=== PATIENT | female | born 1940 | race Caucasian/White ===

== ENCOUNTER 2016-03-30 18:53 | Observation (INO) | payer MEDICARE, BC ==
[2016-03-30] MEDS ORDERED: SODIUM CHLORIDE 3 % 500 ML IV SCH (19:15)
[2016-03-30] MEDS ORDERED: ALBUTEROL SULFATE/IPRATROPIUM 3 ML NEBU IH ONE ×2 (19:20→19:44)
--- NOTE | 2016-03-30 19:20 | ERNOTE ---
Respiratory HPI - Narrative Date of Service: 03/30/16 Narrative: Patient comes in with shortness of breath it's been going on since . An off-and-on got worse today while she was just doing her routine activities. She denies any abdominal pain or chest pain but she short of breath which are a little activities as stated. She is unable to sleep in a supine position she has to prop her supple pillows although she denies any leg swelling. Her calf pain patient's not had any fever. She's had a chest x-ray done today which did not show anything acute except for possible COPD She's also been seen and had a pulmonary function tests were still trying to get the results for. There is some question about her having asthma as well. Patient denies smoking. She has a cough dry hacking nature. She does state when paramedics arrived to her house her sats were only 76% - General Time Seen by Provider: 03/30/16 19:06 Source: patient Exam Limitations: no limitations - History of Present Illness Timing/Duration: just prior to arrival Severity: mild Associated Symptoms: Present: cough, lightheadedness, shortness of breath. Absent: chest pain/soreness, dizziness, earache, fever/chills, headache, muscle aches, nasal congestion, nasal drainage - Immun/Allergies/Home Medications Immunization: IMMUNIZATION HX Immunizations Up to Date Yes History of Influenza Vaccine No Hx Pneumococcal Vaccination Yes Allergies/Adverse Reactions: Allergies Allergy/AdvReac Type Severity Reaction Status Date / Time No Known Allergies Allergy Unverified 03/14/12 18:14 Home Medications: Home Medications Medication Instructions Recorded Last Taken Albuterol Sulfate [Proair Hfa] 8.5 gm IH PRN 03/14/12 Unknown Felodipine [Felodipine ER] 10 mg PO DAILY 03/14/12 Unknown Lisinopril 20 mg PO DAILY 03/14/12 Unknown Simvastatin 40 mg PO DAILY 03/14/12 Unknown Review of Systems - Review of Systems Constitutional: Absent: fever, weakness EENTM: Absent: blurred vision, ear discharge, mouth pain, mouth swelling Respiratory: Present: cough, orthopnea, short of breath, wheezing Cardiology: Absent: chest pain, edema, palpitations, syncope Gastrointestinal/Abdominal: Absent: abdominal pain, constipation Neurological: Absent: anxiety, depressed Hematologic/Lymphatic: Absent: anemia, blood clots All Other Systems: All systems neg except as marked - Patient's Past Medical History Patient History - Medical: No pertinent hx Patient History - Cardiac/Respiratory: Hypertension Patient History - Cancer: No Hx of Cancer Patient History - Surgical Procedures: No surgical history Patient History - Other: None - Family History mom Family History - Medical: , No pertinent hx Family History - Cardiac/Respiratory: No pertinent hx Family History - Cancer: Colon - Social History Living Situations: home Abuse History: No History of abuse Psych History: No pertinent hx Smoking Status: Never smoker Alcohol Use: none Drug Use: none - Immunizations Immunizations Up to Date: Yes Hx Pneumococcal Vaccination: Yes History of Influenza Vaccine: No Fever EXAM - Physical Exam General Appearance: Present: WD/WN, no apparent distress ENT Exam: Present: normal ENT inspection, pharynx normal, TMs normal Respiratory: Present: chest non-tender, decreased breath sounds, rhonchi, wheezing. Absent: accessory muscle use, rales, stridor Cardiovascular/Chest: Present: normal peripheral pulses, regular rate, rhythm, no chest tenderness, no edema, no gallop, no JVD, no murmur Gastrointestinal/Abdominal: Present: normal bowel sounds, no organomegaly, no pulsatile mass, non tender. Absent: distended, guarding Extremity: Present: normal range of motion, non-tender, normal inspection, no pedal edema, no calf tenderness Neurologic: Present: alert, normal mood/affect, oriented x 3 Skin Exam: Present: normal color, warm/dry, no cyanosis Lymphatic: Present: no adenopathy ED Progress - PROGRESS/REASSESSMENT Condition: Improved Progress Note-Subjective: 03/30/16 20:33 Is requiring oxygen her sats at rest lowest they've been a 88% - VITAL SIGNS Patient's Vital Signs:: I have reviewed the patient's vital signs. Vital Signs - Last Taken Temp 36.6 C 03/30/16 19:01 Pulse 134 H 03/30/16 19:01 Resp 22 H 03/30/16 19:01 BP 169/89 03/30/16 19:01 Pulse Ox 90 03/30/16 19:01 - RESULTS AND ORDERS Patient's Lab Results:: I have reviewed the patient's lab results. - EKG EKG #1 EKG: nonspecific ST T wave chg EKG Read: Reviewed by me EKG Comments: Past tachycardiac heart rate [address]-T wave changes. Departure - Departure Clinical Impression: COPD exacerbation, Hypoxemia Disposition: [facility] Condition: Stable Additional Instructions: To be admitted to the hospital, dimer may need a CT chest PE protocol, if the d-dimer is negative this is most likely COPD exacerbation.
[2016-03-30 19:28] LABS: Hematocrit 41.2 % (37.0-47.0); Hemoglobin 13.8 gm/dL (12.5-16.0); Mean Corpuscular Hemoglobin 29.8 pg (27-31); Mean Corpuscular Hgb Conc 33.5 g/dl (32-36); Mean Platelet Volume 9.3 fl (6.0-9.5); Neutrophil # 8.3 K/mm3 (1.3-6.0); Neutrophil % 69.7 % (42-75.0); Platelet Count 269 K/mm3 (150-450); Red Blood Count 4.63 M/mm3 (4.2-5.4); Red Cell Distribution Width 12.6 % (11.5-14.0)
[2016-03-30 19:39] LABS: Prothrombin Time (Patient) 10.5 Seconds (9.4-11.4)
[2016-03-30 19:42] LABS: INR 1.01 INR (0.90-1.10); Partial Thrombolplastin Time 22.6 Seconds (24-32)
[2016-03-30 19:46] LABS: Troponin I 0.017 ng/ml (0.00-0.10)
[2016-03-30 19:48] LABS: Albumin * 3.5 gm/dl (3.4-5.0); Anion Gap 11.3 mmol/L (6.8-13.8); BUN/Creatinine Ratio 11.3 (9.0-21.6); Bilirubin, Total 0.2 mg/dL (0.0-1.1); Ca. Corrected For Albumin 9.2 mg/dL (8.4-10.2); Calcium * 9.1 mg/dL (7.9-10.9); Potassium 4.3 mmol/L (3.4-4.6); Total Protein 7.6 gm/dL (6.2-8.2)
[2016-03-30] MEDS ORDERED: METHYLPREDNISOLONE SOD SUCC/PF 40 MG/ML VIAL IV ONE (20:21)
[2016-03-30] MEDS ORDERED: METHYLPREDNISOLONE SOD SUCC/PF 40 MG/ML VIAL ONE (20:52)
[2016-03-30] MEDS ORDERED: ALBUTEROL SULFATE 200 PUFF INHALER IH PRN (23:01)
[2016-03-30] MEDS ORDERED: guaiFENesin 100 MG/5 ML BTL PO PRN (23:08)
--- NOTE | 2016-03-30 23:39 | HP ---
Chief Complaint - Chief Complaint Date of Service: 03/30/16 Time of Service: 23:11 Chief Complaint: Shortness of breath, non productive cough History of Present Illness: 75 years old female adm to the hospital from ER with reports of shortness of breath and cough. PMH significant for Asthma, COPD, hypertension,, hyperlipidemia and hypothyroidism. pt stated approximately around the she noticed shortness of breath that have gotten progressively worst. Initially she was treated with oral antibiotics, steroids and inhalers. Despite treatment her condition continue to exacerbate with exertion, she was seen earlier today out-pt for CXR: No acute findings likey COPD. PFT: Moderate obstructive lung defect. While at home earlier today, pt stated she went out with her dogs and was unable to catch a breath.EMS was called and spo2 76% on room air, while in ER spo2 94% via nasal cannula. D- Dimer 0.79 CTA chest pending. EKG- Tachy no st-changes.pt denies chest discomfort, fever, chills, palpitation, diaphoresis and report intermittent clear sputum with cough. - Patient's Past Medical History Patient History - Medical: Hypothyroidism, Other - RLS Patient History - Cardiac/Respiratory: Asthma, COPD, Hypertension, Hyperlipidemia Patient History - Cancer: No Hx of Cancer Patient History - Surgical Procedures: Colonoscopy, Other - Right knee aspiration Patient History - Other: None - Family History mom Family History - Medical: , No pertinent hx Family History - Cardiac/Respiratory: No pertinent hx Family History - Cancer: Colon Father Family History - Cardiac/Respiratory: COPD - emphysema - Social History Living Situations: alone Abuse History: No History of abuse Psych History: No pertinent hx Smoking Status: Never smoker Have you smoked in the past 12 months: No Do you dip or chew tobacco: No Patient requests Smoking Cessation Consult: No Initiate information on Smoking Cessation: No Alcohol Use: none Drug Use: none - Immunizations Immunizations Up to Date: Yes Hx Pneumococcal Vaccination: Yes History of Influenza Vaccine: No Review Of Systems (GEN) - Review of Systems Generalized/Overall Review: Present: No Symptoms Reported EENTM: Present: No Symptoms Reported Respiratory: Present: Cough, Wheezing Cardiac: Present: No Symptoms Reported Abdominal: Present: No Symptoms Reported Genitourinary: Present: No Symptoms Reported Musculoskeletal: Present: No Symptoms Reported Neurological: Present: No Symptoms Reported Skin: Present: No Symptoms Reported Endocrine: Present: No Symptoms Reported Immunizations: IMMUNIZATION HX Immunizations Up to Date Yes History of Influenza Vaccine No Hx Pneumococcal Vaccination Yes Allergies/Adverse Reactions: Allergies Allergy/AdvReac Type Severity Reaction Status Date / Time No Known Allergies Allergy Unverified 03/14/12 18:14 Home Medications: HOME MEDICATIONS Albuterol Sulfate [Proair Hfa] 8.5 gm IH QID PRN 03/14/12 [Last Taken 03/29/16 20:00] Felodipine [Felodipine ER] 10 mg PO DAILY 03/14/12 [Last Taken 03/29/16 20:00] Lisinopril 20 mg PO DAILY 03/14/12 [Last Taken 03/29/16 20:00] Simvastatin 40 mg PO DAILY 03/14/12 [Last Taken 03/29/16 20:00] Albuterol Sulfate [Albuterol Sulfate 2.5 MG/0.5ML] 1 vial IH QID PRN 03/30/16 [ Last Taken Unknown] Exam - Exam Vital Signs: Vital Signs - Last Taken Temp 36.6 C 03/30/16 19:01 Pulse 112 H 03/30/16 19:58 Resp 22 H 03/30/16 19:58 BP 169/89 03/30/16 19:01 Pulse Ox 94 03/30/16 19:58 Constitutional: Present: Alert, Oriented x3, Cooperative, Well developed, No distress, Elderly ENT Exam: Present: moist mucous membranes Eye Exam: bilateral eye: PERRL Neck: Present: non-tender, full range of motion Back Exam: Present: normal inspection, no CVA tenderness, no vertebral tenderness Breasts: Present: Exam deferred Respiratory: Present: chest non-tender, normal breath sounds, no respiratory distress, no accessory muscle use, wheezing Cardiovascular/Chest: Present: normal peripheral pulses, no chest tenderness, no edema, tachycardia Peripheral Pulses: dorsalis-pedis (R): 3+, dorsalis-pedis (L): 3+ Abdomen: Present: Normal bowel sounds, soft, nontender, nondistended, no rebound tenderness /Rectal: Present: Exam deferred Extremity: Present: normal range of motion, non-tender, normal inspection, no pedal edema, no calf tenderness Skin Exam: Present: normal color, warm/dry, no cyanosis Lymphatic: Present: no adenopathy Neurologic: Present: oriented x 3 Appearance: Present: appropriate appearance Eye contact: Present: cooperative, good eye contact Thoughts: Present: normal thought pattern Diagnostic Studies: Laboratory Results WBC 12.0 K/mm3 (4.0-10.5) H 03/30/16 19:20 RBC 4.63 M/mm3 (4.2-5.4) 03/30/16 19:20 Hgb 13.8 gm/dL (12.5-16.0) 03/30/16 19:20 Hct 41.2 % (37.0-47.0) 03/30/16 19:20 MCV 89.0 fl (78-100) 03/30/16 19:20 MCH 29.8 pg (27-31) 03/30/16 19:20 MCHC 33.5 g/dl (32-36) 03/30/16 19:20 RDW 12.6 % (11.5-14.0) 03/30/16 19:20 Plt Count 269 K/mm3 (150-450) 03/30/16 19:20 MPV 9.3 fl (6.0-9.5) 03/30/16 19:20 Immature Gran % (Auto) 0.40 % (0.001-0.429) 03/30/16 19:20 Immature Gran # (Auto) 0.05 K/mm3 (0.000-0.0310) H 03/30/16 19:20 Neutrophils % 69.7 % (42-75.0) 03/30/16 19:20 Lymphocytes % 21.8 % (20-51) 03/30/16 19:20 Monocytes % 6.0 % (0.0-9) 03/30/16 19:20 Eosinophils % 1.7 % (0.0-3.0) 03/30/16 19:20 Basophils % 0.4 % (0.0-1.0) 03/30/16 19:20 Nucleated RBC % 0.0 k/mm3 (0-1) 03/30/16 19:20 Neutrophils # 8.3 K/mm3 (1.3-6.0) H 03/30/16 19:20 Lymphocytes # 2.6 k/mm3 (1.5-3.5) 03/30/16 19:20 Monocytes # 0.7 k/mm3 (0.0-1.0) 03/30/16 19:20 Eosinophils # 0.2 k/mm3 (0.0-0.7) 03/30/16 19:20 Absolute Basophils 0.1 k/mm3 (0.0-0.1) 03/30/16 19:20 PT 10.5 Seconds (9.4-11.4) 03/30/16 19:20 INR (Anticoag Therapy) 1.01 INR (0.90-1.10) 03/30/16 19:20 PTT ([place]) 22.6 Seconds (24-32) L 03/30/16 19:20 D-Dimer 0.79 mg/L (0.19-0.49) H 03/30/16 20:13 pCO2 37.7 mmHg (32.0-45.0) 03/30/16 19:11 pO2 73.5 mmHg (83.0-108.0) L 03/30/16 19:11 HCO3 23.8 mmol/L (21.0-28.0) 03/30/16 19:11 Total CO2 25.0 mmol/L (19.0-24.0) H 03/30/16 19:11 Base Excess -0.4 mmol/L (-2.0-3.0) 03/30/16 19:11 ABG pH 7.42 (7.35-7.45) 03/30/16 19:11 ABG O2 Sat (Measured) 95.1 % (94.0-98.0) 03/30/16 19:11 Sodium 140 mmol/L (132-142) 03/30/16 19:20 Plasma Sodium 140 mmol/L (130-142) 03/30/16 19:20 Potassium 4.3 mmol/L (3.4-4.6) 03/30/16 19:20 Chloride 104 mmol/L (97-106) 03/30/16 19:20 Carbon Dioxide 29.0 mmol/L (24-32.6) 03/30/16 19:20 Anion Gap 11.3 mmol/L (6.8-13.8) 03/30/16 19:20 BUN 12 mg/dL (3-23) 03/30/16 19:20 Creatinine 1.06 mg/dL (0.4-1.4) 03/30/16 19:20 Est GFR (Non-Af Amer) 54 mL/min (60-130) L D 03/30/16 19:20 BUN/Creatinine Ratio 11.3 (9.0-21.6) 03/30/16 19:20 Random Glucose 131 mg/dL (70-110) H 03/30/16 19:20 Calcium 9.1 mg/dL (7.9-10.9) 03/30/16 19:20 Calcium Adj for Albumin 9.2 mg/dL (8.4-10.2) 03/30/16 19:20 Total Bilirubin 0.2 mg/dL (0.0-1.1) 03/30/16 19:20 AST 13 U/L (0-48) 03/30/16 19:20 ALT 17 U/L (19-67) L 03/30/16 19:20 Alkaline Phosphatase 132 U/L (50-170) 03/30/16 19:20 Troponin I 0.017 ng/ml (0.00-0.10) 03/30/16 19:20 B-Natriuretic Peptide 69 pg/mL (5-325) 03/30/16 19:20 Total Protein 7.6 gm/dL (6.2-8.2) 03/30/16 19:20 Albumin 3.5 gm/dl (3.4-5.0) 03/30/16 19:20 Assessment/Plan - Narrative Narrative: COPD exacerbation Continue with IV and inhaled steriods Schedule nebulizer treatments and PRN Supplemented oxygen and wean off soon as prudent Encourage use of I/S and peak flow after treatment ( pt with asthma) 03/30/16 CXR- No pneumonia or acute findings likely COPD On adm D-Dimer 0.79 CT Chest pending On adm WBC 12.0 possible stress response. Anticipate WBC to be more elevated after repeat CBC due to steriods use. Sputum culture and Procalcitonin pending. May consider adding Azithromycin 500mg daily if suspected bacterial. Asthma Plan same as #1 Hypertension- stable Continue with home dose of medications Hyperlipidemia- stable Continue with home dose of medications VTE ppx: Ambulate and SCD while in bed GI ppx Pepcid Pt stated she is feeling much better since adm to med-surg. Denies shortness of breath and spo2 94% RA. Anticipate DC home tomorrow - Assessment/Plan (1) COPD exacerbation Problem: Acute (2) Hypertension Problem: Chronic (3) Hypoxemia Problem: Resolved
[2016-03-30] MEDS ORDERED: AZITHROMYCIN 500 MG in DEXTROSE 5 % IN WATER 250 ML IV SCH ×2 (23:45)
[2016-03-31] MEDS ORDERED: BUDESONIDE 0.5 MG/2 ML VIAL.NEB IH ONE (01:07)
[2016-03-31] MEDS: ALBUTEROL SULFATE/IPRATROPIUM 3 ML NEBU IH SCH ×3 (01:18→13:16)
[2016-03-31] MEDS ORDERED: AZITHROMYCIN 500 MG in DEXTROSE 5 % IN WATER 250 ML IV SCH ×2 (02:00)
[2016-03-31] MEDS ORDERED: LISINOPRIL 10 MG TABLET ONE (03:22)
[2016-03-31] MEDS: LISINOPRIL 20 MG TABLET PO SCH ×2 (03:23→09:10)
[2016-03-31] MEDS ORDERED: hydrALAZINE HCL 20 MG/ML VIAL IV PRN (03:31)
[2016-03-31 05:21] LABS: Urine Bilirubin Negative (NEGATIVE); Urine Ketone Negative (NEGATIVE); Urine Nitrite Negative (NEGATIVE); Urine Protein Negative (NEGATIVE); Urine Specific Gravity 1.015 SP.GR. (1.005-1.010); Urine Urobilinogen Normal (NORMAL)
[2016-03-31 05:25] LABS: Urine Appearance Clear; Urine Bacteria None Seen; Urine Blood Negative /ul (NEGATIVE); Urine Color Pale Yellow; Urine RBC None Seen /hpf (0-5); Urine WBC None Seen /hpf (0-5)
[2016-03-31 06:38] LABS: Hematocrit 42.8 % (37.0-47.0); Hemoglobin 14.4 gm/dL (12.5-16.0); Mean Cell Volume 88.6 fl (78-100); Mean Corpuscular Hemoglobin 29.8 pg (27-31); Mean Corpuscular Hgb Conc 33.6 g/dl (32-36); Mean Platelet Volume 9.6 fl (6.0-9.5); Neutrophil # 8.2 K/mm3 (1.3-6.0); Neutrophil % 90.3 % (42-75.0); Platelet Count 308 K/mm3 (150-450); Red Blood Count 4.83 M/mm3 (4.2-5.4); Red Cell Distribution Width 12.3 % (11.5-14.0); White Blood Count 9.1 K/mm3 (4.0-10.5)
[2016-03-31] MEDS ORDERED: ALBUTEROL SULFATE 2.5 MG/0.5 ML VIAL.NEB IH PRN (06:54)
[2016-03-31 06:59] LABS: Albumin * 3.5 gm/dl (3.4-5.0); Anion Gap 16.8 mmol/L (6.8-13.8); Bilirubin, Total 0.3 mg/dL (0.0-1.1); Ca. Corrected For Albumin 9.7 mg/dL (8.4-10.2); Calcium * 9.6 mg/dL (7.9-10.9); Carbon Dioxide 24.5 mmol/L (24-32.6); Potassium 4.3 mmol/L (3.4-4.6); Total Protein 8.1 gm/dL (6.2-8.2)
[2016-03-31] MEDS ORDERED: BUDESONIDE 0.5 MG/2 ML VIAL.NEB IH SCH (07:00)
--- NOTE | 2016-03-31 08:47 | DS ---
Description of Stay: Mitali House, is a 75 years old female adm to the hospital from ER with reports of shortness of breath and cough on 03/30/2016. Her PMH significant for Asthma, COPD, hypertension,, hyperlipidemia and hypothyroidism. The pt stated approximately around the she noticed shortness of breath that have gotten progressively worst. Initially she was treated with oral antibiotics, steroids and inhalers. Despite treatment her condition continue to exacerbate with exertion, she was seen earlier today out-pt for CXR: No acute findings likey COPD. PFT: Moderate obstructive lung defect. While at home earlier on the day of admission, pt stated she went out with her dogs and was unable to catch a breath.EMS was called and spo2 76% on room air, while in ER spo2 94% via nasal cannula. D-Dimer 0.79 CTA chest pending. EKG- Tachy no st- changes.pt denied chest discomfort, fever, chills, palpitation, diaphoresis and report intermittent clear sputum with cough. She was started on IV solumedrol, IV antibiotics and breathing treatments. She is feeling better today. She did go down to 88 % when walking but went up immediately to 90%. She does not want Home O 2 for now. She is saturating 90-94% on RA. She is stable to go home today. Procedures Performed: none Discharge Disposition: Home self care Disposition: Home self-care Condition: Good Discharge Activity: Activity as tolerated Discharge Diet: Low salt Referrals: Ladonna Santana MD [Primary Care Provider] - Problem Oriented Discharge Instructions to Patient/Family: Chronic Obstructive Pulmonary Disease Exacerbation, [id number] Additional Patient Instructions (free text): Follow up with me next week. Would like a [facility] Courtesy visit at discharge, please fax discharge information to them. Follow up with on 04-07-16 @ 10:00am. Prescriptions (Any new or edited meds): Azithromycin [Zithromax] 250 mg PO DAILY #4 tablet Budesonide [Pulmicort Respules] 0.5 mg IH BIDRT #7 vial.neb guaiFENesin [Robitussin] 200 mg PO Q4H PRN #1 btl PRN Reason: Secretions predniSONE [Prednisone] 2 tab PO DAILY #14 tab Complete Home Medications List: Complete Home Medication List: Albuterol Sulfate [Proair Hfa] 8.5 gm IH QID PRN 03/14/12 Felodipine [Felodipine ER] 10 mg PO DAILY 03/14/12 Lisinopril 20 mg PO DAILY 03/14/12 Simvastatin 40 mg PO DAILY 03/14/12 Albuterol Sulfate [Albuterol Sulfate 2.5 MG/0.5ML] 1 vial IH QID PRN 03/30/16 Azithromycin [Zithromax] 250 mg PO DAILY #4 tablet 03/31/16 Budesonide [Pulmicort Respules] 0.5 mg IH BIDRT #7 vial.neb 03/31/16 guaiFENesin [Robitussin] 200 mg PO Q4H PRN #1 btl 03/31/16 predniSONE [Prednisone] 2 tab PO DAILY #14 tab 03/31/16
[2016-03-31] MEDS ORDERED: FELODIPINE 5 MG TAB.SR.24H PO SCH (09:00)
[2016-03-31] MEDS ORDERED: FLU VACC QS2016-17 36MOS UP/PF 60 MCG/0.5 ML DISP.SYRIN IM ONE (09:00)
[2016-03-31] MEDS ORDERED: SIMVASTATIN 40 MG TABLET PO SCH ×2 (09:00→21:00)
[2016-03-31] MEDS ORDERED: SENNOSIDES/DOCUSATE SODIUM 1 TAB TABLET PO SCH (09:00)
[2016-03-31] MEDS ORDERED: METHYLPREDNISOLONE SOD SUCC 40 MG in WATER FOR INJ.,BACTERIOSTATIC 0 ML IV SCH (09:00)
[2016-03-31 16:50] VITALS: BP 143/67
== END 2016-03-31 17:30 | disposition home or self-care (01) ==
LOC: ER 18:53 → MS 20:35
PROVIDERS: ADMIT Nurse Practitioner Gerontology; ATTEND Internal Medicine
DX: J45.901 Unspecified asthma with (acute) exacerbation (principal); I10 Essential (primary) hypertension; E78.5 Hyperlipidemia, unspecified; E03.9 Hypothyroidism, unspecified; J44.9 Chronic obstructive pulmonary disease, unspecified; Z83.6 Family history of other diseases of the respiratory system
CPT/HCPCS: 36415; 36600; 71020; 71275; 80053; 81001; 82803; 83880; 84145; 84484; 85025; 85379; 85610; 85730; 90686; 93005; 94010; 94640; 96374; 99284; G0378

== ENCOUNTER 2017-02-22 03:58 | Inpatient (IN) | payer MEDICARE, BC ==
[2017-02-22] MEDS ORDERED: ALBUTEROL SULFATE/IPRATROPIUM 3 ML NEBU IH ONE ×4 (04:02→05:22)
--- NOTE | 2017-02-22 04:12 | ERNOTE ---
Dyspnea - General Presenting Symptoms: shortness of breath Time Seen by Provider: 02/22/17 03:59 Source: EMS Exam Limitations: clinical condition - Immun/Allergies/Home Medications Immunizations: IMMUNIZATION HX Immunizations Up to Date Yes History of Influenza Vaccine Yes Hx Pneumococcal Vaccination Yes Allergies/Adverse Reactions: Allergies No Known Allergies Allergy (Verified 02/22/17 04:23) Home Medications: HOME MEDICATIONS Albuterol Sulfate [Proair Hfa] 8.5 gm IH QID PRN 03/14/12 [Last Taken 03/29/16 20:00] Felodipine [Felodipine ER] 10 mg PO DAILY 03/14/12 [Last Taken 03/29/16 20:00] Lisinopril 20 mg PO DAILY 03/14/12 [Last Taken 03/29/16 20:00] Simvastatin 40 mg PO DAILY 03/14/12 [Last Taken 03/29/16 20:00] Albuterol Sulfate [Albuterol Sulfate 2.5 MG/0.5ML] 1 vial IH QID PRN 03/30/16 [ Last Taken Unknown] guaiFENesin [Robitussin] 200 mg PO Q4H PRN #1 btl 03/31/16 [Last Taken Unknown] Acetaminophen [Tylenol] 500 mg PO TID PRN 02/20/17 [Last Taken Unknown] Furosemide [Lasix] 20 mg PO DAILY 02/20/17 [Last Taken Unknown] Loratadine 10 mg PO DAILY 02/20/17 [Last Taken Unknown] Mometasone/Formoterol [Dulera 200 Mcg/5 Mcg Inhaler] 13 gm IH BID 02/20/17 [ Last Taken Unknown] Montelukast Sodium [Singulair] 10 mg PO DAILY 02/20/17 [Last Taken Unknown] Naproxen Sodium [Aleve] 220 mg PO BID 02/20/17 [Last Taken Unknown] predniSONE [Prednisone] 20 mg PO DAILY #7 tablet 02/21/17 [Last Taken Unknown] - History of Present Illness Narrative: Pt was released from this hospital less than 24 hours ago for shortness of breath. She states she was a little better when she left here but worsened throughout the day. She has taken an albuterol neb treatment less than an hour ago. Severity: moderate Treatment [employer]: by patient, albuterol Initiating event: Reports: unknown Frequency of episodes: Reports: frequent episodes Modifying Factors - (Improves): Reports: albuterol, oxygen Modifying Factors (Worsens): Reports: activity Associated Symptoms-Dyspnea: Reports: cough, wheezing Prior Treatment: Reports: recently seen, recently hospitalized Review of Systems - Review of Systems Constitutional: Present: recent illness, fatigue EYE: Present: no symptoms reported ENT: Present: no symptoms reported Respiratory: Present: See HPI Cardiology: Absent: chest pain Gastrointestinal/Abdominal: Absent: nausea Genitourinary: Present: no symptoms reported Musculoskeletal: Present: no symptoms reported Skin: Present: no symptoms reported Neurological: Present: no symptoms reported Endocrine: Present: no symptoms reported Hematologic/Lymphatic: Present: no symptoms reported Psych: Present: no symptoms reported - Patient's Past Medical History Patient History - Medical: Obesity, Other Patient History - Cardiac/Respiratory: Asthma, COPD, Hypertension, Hyperlipidemia Patient History - Cancer: No Hx of Cancer Patient History - Surgical Procedures: Colonoscopy, Other Patient History - Other: None - Family History Father Family History - Cardiac/Respiratory: Asthma, COPD Family History - Cancer: No pertinent family hx mom Family History - Medical: , No pertinent hx Family History - Cardiac/Respiratory: No pertinent hx Family History - Cancer: Colon - Social History Living Situations: home Abuse History: No History of abuse Psych History: No pertinent hx Alcohol Use: none Drug Use: none - Immunizations Immunizations Up to Date: Yes Hx Pneumococcal Vaccination: Yes History of Influenza Vaccine: Yes Physical Exam - Physical Exam General Appearance: Present: wd/wn, alert, moderate distress Head Exam: Present: normal inspection, no evidence of injury Neck: Present: normal inspection, nontender, supple Respiratory: Present: accessory muscle use, decreased breath sounds - /poor air movement, wheezing - slight Cardiovascular/Chest: Present: no murmur, tachycardia Gastrointestinal/Abdominal: Present: normal bowel sounds, nontender, nondistended, soft Neurological Exam: Present: alert, no motor/sensory deficits Skin Exam: Present: normal color, warm/dry Lymphatic Exam: Present: no adenopathy ED Progress - Results and Orders Patient's Lab Results:: I have reviewed the patient's lab results. Results and Orders: Laboratory Tests 02/22/17 02/22/17 02/22/17 04:10 04:10 04:10 WBC 31.3 H D Hgb 14.4 Hct 44.1 Plt Count 363 Neutrophils % (Manual) 82 H Toxic Vacuolation 2+ pCO2 pO2 HCO3 Total CO2 Base Excess ABG pH ABG O2 Sat (Measured) Sodium 139 Potassium 4.5 Chloride 103 Carbon Dioxide 30.3 BUN 26 H D Creatinine 1.19 Random Glucose 142 H Lactic Acid, Venous 1.7 Calcium 8.7 Total Bilirubin 0.2 AST 64 H ALT 47 Alkaline Phosphatase 126 Troponin I Less than 0.017 B-Natriuretic Peptide 194 Total Protein 8.4 H Albumin 3.9 02/22/17 04:23 WBC Hgb Hct Plt Count Neutrophils % (Manual) Toxic Vacuolation pCO2 67.6 H pO2 82.4 L HCO3 24.7 Total CO2 26.8 H Base Excess -5.1 L ABG pH 7.18 L* ABG O2 Sat (Measured) 93.0 L Sodium Potassium Chloride Carbon Dioxide BUN Creatinine Random Glucose Lactic Acid, Venous Calcium Total Bilirubin AST ALT Alkaline Phosphatase Troponin I B-Natriuretic Peptide Total Protein Albumin - Vital Signs Patient's Vital Signs:: I have reviewed the patient's vital signs. Vital Signs: Vital Signs 02/22/17 03:59 Temperature 36.3 C L Pulse Rate 139 H Respiratory 36 H Rate Blood Pressure 214/97 O2 Sat by Pulse 90 Oximetry - EKG EKG: supraventricular tachycardia, nonspecific ST T wave changes EKG read: Interp. by me - X-Ray X-Ray #1 X-Ray: chest Interpretation: Interp. by me X-ray Comments: fibrotic change, pt rotated on current view. No acute changes. Compared to . - Progress/Reassessment Progress Note-Subjective: 02/22/17 05:27 Pt lung sounds slightly better air movement and more associated wheezing. Discussed admission pt. expresses agreement that she needs admission. spoke with Nini [facility] hospitalist. She agrees with OBS admit and antibiotic administration. 02/22/17 05:34 Departure Clinical Impression: Exacerbation of asthma Qualifiers: Asthma severity: moderate Asthma persistence: unspecified Qualified Code(s): J45.901 - Unspecified asthma with (acute) exacerbation - Departure Disposition: [facility] Condition: Fair
[2017-02-22 04:19] LABS: Hematocrit 44.1 % (37.0-47.0); Hemoglobin 14.4 gm/dL (12.5-16.0); Mean Cell Volume 93.2 fl (78-100); Mean Corpuscular Hemoglobin 30.4 pg (27-31); Mean Corpuscular Hgb Conc 32.7 g/dl (32-36); Mean Platelet Volume 9.7 fl (6.0-9.5); Platelet Count 363 K/mm3 (150-450); Red Blood Count 4.73 M/mm3 (4.2-5.4); Red Cell Distribution Width 12.8 % (11.5-14.0); White Blood Count 31.3 K/mm3 (4.0-10.5)
[2017-02-22 04:24] LABS: Total Cells Counted 100
[2017-02-22 04:43] LABS: ALT 47 U/L (19-67); AST 64 U/L (0-48); Albumin * 3.9 gm/dl (3.4-5.0); Alkaline Phosphatase * 126 U/L (50-170); Anion Gap 10.2 mmol/L (6.8-13.8); BNP * 194 pg/mL (5-550); BUN/Creatinine Ratio 21.8 (9.0-21.6); Bilirubin, Total 0.2 mg/dL (0.0-1.1); Blood Urea Nitrogen 26 mg/dL (3-23); Ca. Corrected For Albumin 8.5 mg/dL (8.4-10.2); Calcium * 8.7 mg/dL (7.9-10.9); Carbon Dioxide 30.3 mmol/L (24-32.6); Chloride 103 mmol/L (97-106); Glucose * 142 mg/dL (70-110); Potassium 4.5 mmol/L (3.4-4.6); Sodium 139 mmol/L (132-142); Total Protein 8.4 gm/dL (6.2-8.2); Troponin I Less than 0.017 ng/ml (0.00-0.10)
[2017-02-22 04:49] LABS: Neutrophil 82 % (42-75)
[2017-02-22 04:50] LABS: Band 4 % (0-2.0); Lymphocyte 7 % (20-51); Monocyte 7 % (0-9); Neutrophil # 25.7 K/mm3 (1.3-6.0); Platelet Estimate Normal (NORMAL); RBC Morphology Normal (NORMAL)
[2017-02-22] MEDS ORDERED: METHYLPREDNISOLONE SOD SUCC/PF 125 MG/2 ML VIAL IV ONE (05:29)
[2017-02-22] MEDS ORDERED: METHYLPREDNISOLONE SOD SUCC/PF 125 MG/2 ML VIAL ONE (05:34)
[2017-02-22] MEDS ORDERED: AZITHROMYCIN 500 MG in DEXTROSE 5 % IN WATER 250 ML IV ONE ×2 (06:00)
--- NOTE | 2017-02-22 07:07 | HP ---
Chief Complaint - Chief Complaint Date of Service: 02/22/17 Time of Service: 06:58 Chief Complaint: SOB History of Present Illness: Pt is a 76 year old pt of Dr. Santana who presented by EMS this morning to the ER with SOB, she was released from the hospital less than 24 hours ago for asthma exacerbation. She states she was a little better when she left here but worsened throughout the day. Upon presentation to the ER she was found to be in severe respiratory distress with hypoxia, saturations in the low 80's on RA, HR in the 130's with respirations in the mid 30's. ABG was completed which revealed Pco2 of 67.6, pO2 82.4. HCO3 24.7, CO2 26.8, pH 7.18, and o2 93. She will need to be admitted to in patient for respiratory failure secondary to asthma exacerbation as evidence by hypercapnic respiratory acidosis. - Patient's Past Medical History Patient History - Medical: Obesity, Other Patient History - Cardiac/Respiratory: Asthma, COPD, Hypertension, Hyperlipidemia Patient History - Cancer: No Hx of Cancer Patient History - Surgical Procedures: Colonoscopy, Other Patient History - Other: None - Family History Father Family History - Cardiac/Respiratory: Asthma, COPD Family History - Cancer: No pertinent family hx mom Family History - Medical: , No pertinent hx Family History - Cardiac/Respiratory: No pertinent hx Family History - Cancer: Colon - Social History Living Situations: home Abuse History: No History of abuse Psych History: No pertinent hx Have you smoked in the past 12 months: No Do you dip or chew tobacco: No Patient requests Smoking Cessation Consult: No Initiate information on Smoking Cessation: No Alcohol Use: none Drug Use: none - Immunizations Immunizations Up to Date: Yes Hx Pneumococcal Vaccination: Yes History of Influenza Vaccine: Yes Review Of Systems (GEN) - Review of Systems Generalized/Overall Review: Present: Diaphoresis, Fatigue EENTM: Present: No Symptoms Reported Respiratory: Present: Shortness of Breath, Orthopnea, Wheezing Cardiac: Present: No Symptoms Reported Abdominal: Present: No Symptoms Reported Genitourinary: Present: No Symptoms Reported Musculoskeletal: Present: No Symptoms Reported Neurological: Present: No Symptoms Reported Skin: Present: No Symptoms Reported Endocrine: Present: No Symptoms Reported Immunizations: IMMUNIZATION HX Immunizations Up to Date Yes History of Influenza Vaccine Yes Hx Pneumococcal Vaccination Yes Allergies/Adverse Reactions: Allergies Allergy/AdvReac Type Severity Reaction Status Date / Time No Known Allergies Allergy Verified 02/22/17 04:23 Home Medications: HOME MEDICATIONS Albuterol Sulfate [Proair Hfa] 8.5 gm IH QID PRN 03/14/12 [Last Taken 02/21/17] Felodipine [Felodipine ER] 10 mg PO DAILY 03/14/12 [Last Taken 02/21/17] Lisinopril 20 mg PO DAILY 03/14/12 [Last Taken 02/21/17] Simvastatin 40 mg PO DAILY 03/14/12 [Last Taken 02/21/17] Albuterol Sulfate [Albuterol Sulfate 2.5 MG/0.5ML] 1 vial IH QID PRN 03/30/16 [ Last Taken 02/21/17] guaiFENesin [Robitussin] 200 mg PO Q4H PRN #1 btl 03/31/16 [Last Taken 02/21/17] Acetaminophen [Tylenol] 500 mg PO TID PRN 02/20/17 [Last Taken 02/21/17] Furosemide [Lasix] 20 mg PO DAILY 02/20/17 [Last Taken 02/21/17] Loratadine 10 mg PO DAILY 02/20/17 [Last Taken 02/21/17] Mometasone/Formoterol [Dulera 200 Mcg/5 Mcg Inhaler] 13 gm IH BID 02/20/17 [ Last Taken 02/21/17] Montelukast Sodium [Singulair] 10 mg PO DAILY 02/20/17 [Last Taken 02/21/17] Naproxen Sodium [Aleve] 220 mg PO BID 02/20/17 [Last Taken 02/21/17] predniSONE [Prednisone] 20 mg PO DAILY #7 tablet 02/21/17 [Last Taken 02/21/17] Exam - Exam Vital Signs: Vital Signs - Last Taken Temp 36.3 C L 02/22/17 03:59 Pulse 125 H 02/22/17 06:20 Resp 25 H 02/22/17 06:20 BP 150/56 02/22/17 06:20 Pulse Ox 94 02/22/17 06:20 Constitutional: Present: Alert, Oriented x3, Cooperative, Severe distress, Elderly ENT Exam: Present: hearing grossly normal Eye Exam: bilateral eye: normal inspection, PERRL Back Exam: Present: normal inspection, no CVA tenderness, no vertebral tenderness Respiratory: Present: respiratory distress, decreased breath sounds, accessory muscle use, rhonchi, wheezing, expiration (prolonged) Cardiovascular/Chest: Present: no chest tenderness, no edema, no gallop, no JVD , no murmur, tachycardia Peripheral Pulses: dorsalis-pedis (R): 2+, dorsalis-pedis (L): 2+, radial (R): 2 +, radial (L): 2+ Abdomen: Present: Normal bowel sounds, soft, nontender, nondistended, no rebound tenderness, no hepatospenomegaly, no masses Extremity: Present: normal range of motion, non-tender, normal inspection, no pedal edema, no calf tenderness, normal capillary refill Skin Exam: Present: normal color, no cyanosis, cool/dry Lymphatic: Present: no adenopathy Neurologic: Present: no motor/sensory deficits, alert, normal mood/affect, oriented x 3 Appearance: Present: appropriate appearance, appropriate insight, no memory impairment, impaired remote memory Eye contact: Present: cooperative, good eye contact, normal speech Thoughts: Present: normal thought pattern, no apparent hallucination Diagnostic Studies: Laboratory Results Laboratory Tests 02/22/17 02/22/17 02/22/17 04:10 04:10 04:10 WBC 31.3 H D Hgb 14.4 Hct 44.1 Plt Count 363 Neutrophils % (Manual) 82 H Band Neuts % (Manual) 4 H Lymphocytes % (Manual) 7 L Neutrophils # (Manual) 25.7 H pCO2 pO2 HCO3 Total CO2 Base Excess ABG pH ABG O2 Sat (Measured) Sodium 139 Potassium 4.5 Chloride 103 BUN 26 H D Creatinine 1.19 Random Glucose 142 H Lactic Acid, Venous 1.7 AST 64 H ALT 47 Alkaline Phosphatase 126 Troponin I Less than 0.017 B-Natriuretic Peptide 194 02/22/17 04:23 WBC Hgb Hct Plt Count Neutrophils % (Manual) Band Neuts % (Manual) Lymphocytes % (Manual) Neutrophils # (Manual) pCO2 67.6 H pO2 82.4 L HCO3 24.7 Total CO2 26.8 H Base Excess -5.1 L ABG pH 7.18 L* ABG O2 Sat (Measured) 93.0 L Sodium Potassium Chloride BUN Creatinine Random Glucose Lactic Acid, Venous AST ALT Alkaline Phosphatase Troponin I B-Natriuretic Peptide Assessment/Plan - Assessment/Plan (1) Hypoxemia Assessment: Hypoxemia as evidence by a pulse ox of 81% on RA due to failed outpt treatment of ashtma exacerbation. Place on supplemental o2. Nebulizers changed from duonebs to xopenox Q30min due tachycardia. ABG consistent with hypercapnic respiratory acidosis. Continue IV steroids and IV Zithromycin. Will repeat ABG now and place on Bipap, with repeat ABG in 45min. She is high risk for rapid respiratory decline, will need to be transferred to the unit and intubated if she does not show any improvement. Problem: Acute (2) Exacerbation of asthma Assessment: Pt just recently discharged yesterday 02/21 afternoon. Failed outpt treatment and is now admitted respiratory failure as evidence by hypercapnic respiratory acidosis with hypoxemia. White count is elevated at 30, but she is also on IV steroids. Will continue with Azythromycin and one dose of Rocephin for coverage. Draw BC prior to administration. Sputum culture from prior admission with moderate gram + cocci and few gram + bacilli. Add pulmicort 0.5mg BID IH and continuous xopenox treatments for now with Bipap. As above pt is at extremely high risk for rapid decline and might require intubation. Problem: Acute (3) Hypertension Assessment: Continue home medications. VS Q4H Problem: Chronic (4) Obesity Problem: Chronic
[2017-02-22] MEDS: LEVALBUTEROL HCL 0.63 MG/3 ML AMPUL IH SCH ×5 (07:11→22:07)
[2017-02-22] MEDS ORDERED: AZITHROMYCIN 500 MG in DEXTROSE 5 % IN WATER 250 ML IV SCH ×2 (07:15)
[2017-02-22] MEDS ORDERED: AZITHROMYCIN 500 MG in NORMAL SALINE 250 ML IV ONE ×4 (07:30)
[2017-02-22] MEDS ORDERED: LEVALBUTEROL HCL 1.25 MG/3 ML AMPUL IH ONE ×2 (07:57→08:23)
[2017-02-22] MEDS: LEVALBUTEROL HCL 1.25 MG/3 ML AMPUL IH SCH ×5 (07:58→13:34)
[2017-02-22] MEDS: BUDESONIDE 0.5 MG/2 ML VIAL.NEB IH SCH ×2 (08:36→18:12)
[2017-02-22] MEDS: NORMAL SALINE 1,000 ML IV PRN ×2 (08:41→17:27)
[2017-02-22] MEDS: LEVALBUTEROL HCL 0.63 MG/3 ML AMPUL IH PRN ×3 (10:22→18:12)
[2017-02-22] MEDS: FELODIPINE 5 MG TAB.SR.24H PO SCH (11:21)
[2017-02-22] MEDS: LISINOPRIL 20 MG TABLET PO SCH (11:21)
[2017-02-22] MEDS: FUROSEMIDE 20 MG TABLET PO SCH (11:21)
[2017-02-22] MEDS: NAPROXEN SODIUM 220 MG TABLET PO SCH ×2 (11:21→20:12)
[2017-02-22] MEDS: LORATADINE 10 MG TABLET PO SCH (11:21)
[2017-02-22] MEDS: MONTELUKAST SODIUM 10 MG TABLET PO SCH (11:21)
[2017-02-22] MEDS: METHYLPREDNISOLONE SOD SUCC 60 MG in WATER FOR INJ.,BACTERIOSTATIC 0 ML IV SCH ×3 (11:22→23:27)
[2017-02-22 14:01] LABS: Urine Bilirubin Negative (NEGATIVE); Urine Ketone Negative (NEGATIVE); Urine Nitrite Negative (NEGATIVE); Urine Protein Negative (NEGATIVE); Urine Urobilinogen Normal (NORMAL); Urine pH 5.5 pH (5.0-7.0)
[2017-02-22 14:18] LABS: Urine Appearance Clear; Urine Bacteria None Seen; Urine Blood 5 /ul (NEGATIVE); Urine Color Yellow; Urine Hyaline Cast 0-5 /LPF; Urine RBC None Seen /hpf (0-5); Urine WBC None Seen /hpf (0-5)
[2017-02-22] MEDS: SIMVASTATIN 40 MG TABLET PO SCH (20:12)
[2017-02-23] MEDS: LEVALBUTEROL HCL 0.63 MG/3 ML AMPUL IH PRN ×4 (01:14→13:06)
[2017-02-23] MEDS: LEVALBUTEROL HCL 0.63 MG/3 ML AMPUL IH SCH ×6 (03:19→22:33)
[2017-02-23] MEDS: NORMAL SALINE 1,000 ML IV PRN ×2 (04:24→16:06)
[2017-02-23] MEDS: METHYLPREDNISOLONE SOD SUCC 60 MG in WATER FOR INJ.,BACTERIOSTATIC 0 ML IV SCH ×3 (05:07→17:39)
[2017-02-23] MEDS: BUDESONIDE 0.5 MG/2 ML VIAL.NEB IH SCH ×2 (06:13→17:50)
[2017-02-23] MEDS: FELODIPINE 5 MG TAB.SR.24H PO SCH (08:36)
[2017-02-23] MEDS: NAPROXEN SODIUM 220 MG TABLET PO SCH ×2 (08:36→21:47)
--- NOTE | 2017-02-23 08:36 | PN ---
Subjective - Date and Time Seen Date: 02/23/17 Time: 08:30 Subjective Narrative: Patient feels a little bit better than yesterday. She is anxious. Her friend next to her room just . Objective - Review of Systems Generalized/Overall Review: Denies: Chills, Fever Respiratory: Reports: Shortness of Breath, Wheezing. Denies: Orthopnea Cardiac: Denies: Chest Pain, Edema, Palpitations Abdominal: Denies: Nausea, Vomiting Genitourinary Symptoms: Denies: Urgency, Frequency - Vitals Vitals: Last Vital Signs Temp 36.6 C 02/23/17 06:00 Pulse 112 H 02/23/17 07:35 Resp 20 02/23/17 07:35 BP 168/89 02/23/17 06:00 Pulse Ox 93 02/23/17 08:07 - Abnormal Lab Findings Abnormal Lab Findings: Abnormal Lab Results 02/22/17 02/22/17 02/22/17 Range/Units 09:03 10:44 13:11 pCO2 51.4 H 49.5 H (32.0-45.0) mmHg pO2 72.9 L (83.0-108.0) mmHg Total CO2 26.2 H 25.8 H (19.0-24.0) mmol/L Base Excess -2.3 L -2.4 L (-2.0-3.0) mmol/L ABG pH 7.30 L 7.31 L (7.35-7.45) ABG O2 Sat (Measured) 93.0 L (94.0-98.0) % Urine Blood 5 H (NEGATIVE) /ul Hyaline Casts 0-5 H (NONE) /LPF 02/22/17 Range/Units 17:35 pCO2 (32.0-45.0) mmHg pO2 (83.0-108.0) mmHg Total CO2 26.8 H (19.0-24.0) mmol/L Base Excess (-2.0-3.0) mmol/L ABG pH (7.35-7.45) ABG O2 Sat (Measured) (94.0-98.0) % Urine Blood (NEGATIVE) /ul Hyaline Casts (NONE) /LPF - Exam Constitutional: Present: Alert, Oriented x3, Cooperative ENT Exam: Present: hearing grossly normal Neck: Present: supple Respiratory: Present: decreased breath sounds, wheezing. Absent: rales Cardiovascular/Chest: Present: regular rate, rhythm, no JVD, tachycardia Abdomen: Present: Normal bowel sounds, soft, nontender, nondistended Extremity: Present: no pedal edema, no calf tenderness Assessment/Plan - Problems/Diagnosis (1) Exacerbation of asthma Problem: Acute Narrative: continue with present management. will transfer her to acute status. (2) Anxiety Problem: Acute Narrative: which could be hampering her breathing recovery. will start her on Ativan PRN. (3) Allergy Problem: Acute (4) Hypertension Problem: Chronic Qualifiers: Hypertension type: essential hypertension Qualified Code(s): I10 - Essential (primary) hypertension (5) Obesity Problem: Chronic
[2017-02-23] MEDS: MONTELUKAST SODIUM 10 MG TABLET PO SCH (08:37)
[2017-02-23] MEDS: FUROSEMIDE 20 MG TABLET PO SCH (08:37)
[2017-02-23] MEDS: LISINOPRIL 20 MG TABLET PO SCH (08:37)
[2017-02-23] MEDS: LORATADINE 10 MG TABLET PO SCH (08:37)
[2017-02-23] MEDS: AZITHROMYCIN 500 MG in DEXTROSE 5 % IN WATER 250 ML IV SCH ×2 (08:43)
[2017-02-23] MEDS: LORazepam 1 MG TABLET PO PRN ×2 (14:08→22:48)
[2017-02-23] MEDS: SIMVASTATIN 40 MG TABLET PO SCH (21:47)
[2017-02-24] MEDS: METHYLPREDNISOLONE SOD SUCC 60 MG in WATER FOR INJ.,BACTERIOSTATIC 0 ML IV SCH ×4 (00:22→19:39)
[2017-02-24] MEDS: LEVALBUTEROL HCL 0.63 MG/3 ML AMPUL IH SCH ×7 (02:35→22:53)
[2017-02-24] MEDS: NORMAL SALINE 1,000 ML IV PRN (02:53)
[2017-02-24] MEDS: BUDESONIDE 0.5 MG/2 ML VIAL.NEB IH SCH ×3 (06:11→18:00)
[2017-02-24] MEDS: FUROSEMIDE 20 MG TABLET PO SCH (08:21)
[2017-02-24] MEDS: NAPROXEN SODIUM 220 MG TABLET PO SCH (08:21)
[2017-02-24] MEDS: FELODIPINE 5 MG TAB.SR.24H PO SCH (08:21)
[2017-02-24] MEDS: LISINOPRIL 20 MG TABLET PO SCH (08:21)
[2017-02-24] MEDS: MONTELUKAST SODIUM 10 MG TABLET PO SCH (08:21)
[2017-02-24] MEDS: LORATADINE 10 MG TABLET PO SCH (08:21)
[2017-02-24] MEDS: AZITHROMYCIN 500 MG in DEXTROSE 5 % IN WATER 250 ML IV SCH ×2 (08:33)
--- NOTE | 2017-02-24 08:50 | PN ---
Subjective - Date and Time Seen Date: 02/24/17 Time: 08:44 Subjective Narrative: Says she feels tired but thinks she is getting better. ADDENDUM: Patient developed AFib with RVR. IV cardizem bolus given. IV cardizem drip started and moved to SCU. Objective - Review of Systems Generalized/Overall Review: Reports: Fatigue Respiratory: Reports: Shortness of Breath, Wheezing Cardiac: Denies: Chest Pain, Edema, Palpitations Abdominal: Denies: Nausea, Vomiting Genitourinary Symptoms: Denies: Urgency, Frequency - Vitals Vitals: Last Vital Signs Temp 36.1 C L 02/24/17 06:45 Pulse 107 H 02/24/17 08:21 Resp 20 02/24/17 06:45 BP 162/81 02/24/17 08:21 Pulse Ox 100 02/24/17 06:45 - Exam Constitutional: Present: Alert, Oriented x3, Cooperative ENT Exam: Present: hearing grossly normal Neck: Present: supple Respiratory: Present: decreased breath sounds, crackles, wheezing Cardiovascular/Chest: Present: regular rate, rhythm, no murmur, tachycardia Abdomen: Present: soft, nontender, nondistended Extremity: Present: no pedal edema, no calf tenderness Assessment/Plan - Problems/Diagnosis (1) Exacerbation of asthma Problem: Acute Qualifiers: Asthma severity: moderate Asthma persistence: persistent Qualified Code(s ): J45.41 - Moderate persistent asthma with (acute) exacerbation Narrative: continue with present medications and BiPap. will get intouch with her dog licenser. ADDENDUM: Discussed with Dr. Szymanski- continue with present management but add ipatropium nebs QID/ add PPI/ do influenza test/ rest her with BiPap. (2) Anxiety Problem: Acute (3) Allergy Problem: Acute (4) Hypertension Problem: Chronic Qualifiers: Hypertension type: essential hypertension Qualified Code(s): I10 - Essential (primary) hypertension Narrative: will increase her Lisinopril. (5) Obesity Problem: Chronic
[2017-02-24] MEDS ORDERED: LISINOPRIL 40 MG TABLET PO SCH (09:00)
[2017-02-24 09:27] LABS: Albumin * 3.2 gm/dl (3.4-5.0); Anion Gap 5.2 mmol/L (6.8-13.8); BUN/Creatinine Ratio 31.8 (9.0-21.6); Bilirubin, Total 0.3 mg/dL (0.0-1.1); Ca. Corrected For Albumin 8.7 mg/dL (8.4-10.2); Calcium * 8.4 mg/dL (7.9-10.9); Carbon Dioxide 35.4 mmol/L (24-32.6); Potassium 4.6 mmol/L (3.4-4.6); Total Protein 6.7 gm/dL (6.2-8.2)
[2017-02-24] MEDS ORDERED: DILTIAZEM HCL 5 MG/ML VIAL IV ONE (09:42)
[2017-02-24] MEDS ORDERED: DILTIAZEM HCL 30 MG TABLET PO SCH (10:30)
[2017-02-24] MEDS: DILTIAZEM HCL 125 MG in DEXTROSE 5 % IN WATER 100 ML IV PRN ×4 (11:17→18:59)
[2017-02-24 11:22] LABS: Hematocrit 41.5 % (37.0-47.0); Hemoglobin 13.2 gm/dL (12.5-16.0); Mean Cell Volume 96.5 fl (78-100); Mean Corpuscular Hemoglobin 30.7 pg (27-31); Mean Corpuscular Hgb Conc 31.8 g/dl (32-36); Neutrophil # 13.1 K/mm3 (1.3-6.0); Neutrophil % 90.9 % (42-75.0); Platelet Count 266 K/mm3 (150-450); Red Cell Distribution Width 12.8 % (11.5-14.0); White Blood Count 14.4 K/mm3 (4.0-10.5)
[2017-02-24] MEDS ORDERED: PANTOPRAZOLE SODIUM 40 MG in NORMAL SALINE 100 ML IV SCH (11:45)
[2017-02-24] MEDS ORDERED: ACETAMINOPHEN 325 MG TABLET PO PRN (12:10)
[2017-02-24] MEDS: PANTOPRAZOLE SODIUM 40 MG TABLET.EC PO SCH (12:21)
[2017-02-24] MEDS: IPRATROPIUM BROMIDE 0.5 MG/2.5 ML VIAL.NEB IH SCH ×3 (12:30→18:49)
[2017-02-24] MEDS: LORazepam 1 MG TABLET PO PRN ×2 (14:46→20:11)
[2017-02-24] MEDS: DILTIAZEM HCL 30 MG TABLET PO SCH ×2 (14:47→21:56)
[2017-02-24] MEDS: ENOXAPARIN SODIUM 60 MG/0.6 ML SYRG SC SCH (17:35)
[2017-02-24] MEDS: SIMVASTATIN 40 MG TABLET PO SCH (20:12)
[2017-02-25] MEDS: LEVALBUTEROL HCL 0.63 MG/3 ML AMPUL IH SCH ×6 (02:36→22:05)
[2017-02-25] MEDS: METHYLPREDNISOLONE SOD SUCC 60 MG in WATER FOR INJ.,BACTERIOSTATIC 0 ML IV SCH ×4 (02:41→20:23)
[2017-02-25] MEDS: IPRATROPIUM BROMIDE 0.5 MG/2.5 ML VIAL.NEB IH SCH ×4 (02:48→18:09)
[2017-02-25] MEDS: ENOXAPARIN SODIUM 60 MG/0.6 ML SYRG SC SCH (05:38)
[2017-02-25 05:56] LABS: Hematocrit 37.8 % (37.0-47.0); Hemoglobin 12.6 gm/dL (12.5-16.0); Mean Corpuscular Hemoglobin 30.7 pg (27-31); Mean Corpuscular Hgb Conc 33.3 g/dl (32-36); Mean Platelet Volume 9.7 fl (6.0-9.5); Neutrophil # 9.5 K/mm3 (1.3-6.0); Neutrophil % 88.8 % (42-75.0); Platelet Count 240 K/mm3 (150-450); Red Blood Count 4.11 M/mm3 (4.2-5.4); Red Cell Distribution Width 12.3 % (11.5-14.0); White Blood Count 10.7 K/mm3 (4.0-10.5)
[2017-02-25] MEDS: BUDESONIDE 0.5 MG/2 ML VIAL.NEB IH SCH ×2 (06:02→18:10)
[2017-02-25] MEDS: PANTOPRAZOLE SODIUM 40 MG TABLET.EC PO SCH (06:46)
[2017-02-25] MEDS: DILTIAZEM HCL 30 MG TABLET PO SCH ×3 (06:47→22:55)
[2017-02-25] MEDS: AZITHROMYCIN 500 MG in DEXTROSE 5 % IN WATER 250 ML IV SCH ×2 (06:49)
--- NOTE | 2017-02-25 08:14 | PN ---
Subjective - Date and Time Seen Date: 02/25/17 Time: 08:03 Subjective Narrative: Patient feeling better. Patient converted spontaneously overnight. CTS of Chest showed no P.E. Objective - Review of Systems Generalized/Overall Review: Reports: Weakness. Denies: Chills, Fever Respiratory: Reports: Cough, Shortness of Breath, Wheezing - improved Cardiac: Denies: Chest Pain, Edema, Palpitations Abdominal: Denies: Nausea, Vomiting Genitourinary Symptoms: Denies: Urgency, Frequency - Vitals Vitals: Last Vital Signs Temp 36.7 C 02/25/17 06:00 Pulse 92 02/25/17 06:47 Resp 22 H 02/25/17 06:11 BP 141/68 02/25/17 06:47 Pulse Ox 92 02/25/17 06:01 - Abnormal Lab Findings Abnormal Lab Findings: Abnormal Lab Results 02/24/17 02/24/17 02/25/17 Range/Units 09:00 09:00 05:53 WBC 14.4 H D 10.7 H D (4.0-10.5) K/mm3 RBC 4.11 L (4.2-5.4) M/mm3 MCHC 31.8 L (32-36) g/dl MPV 10.0 H 9.7 H (6.0-9.5) fl Immature Gran % (Auto) 0.90 H 0.70 H (0.001-0.429) % Immature Gran # (Auto) 0.13 H 0.07 H (0.000-0.0310) K/mm3 Neutrophils % 90.9 H 88.8 H (42-75.0) % Lymphocytes % 5.3 L 7.9 L (20-51) % Neutrophils # 13.1 H 9.5 H (1.3-6.0) K/mm3 Lymphocytes # 0.8 L 0.9 L (1.5-3.5) k/mm3 Carbon Dioxide 35.4 H (24-32.6) mmol/L Anion Gap 5.2 L (6.8-13.8) mmol/L BUN/Creatinine Ratio 31.8 H (9.0-21.6) Random Glucose 184 H (70-110) mg/dL ALT 71 H (19-67) U/L Albumin 3.2 L (3.4-5.0) gm/dl - Exam Constitutional: Present: Alert, Oriented x3, Cooperative ENT Exam: Present: hearing grossly normal Neck: Present: supple Respiratory: Present: decreased breath sounds, wheezing - occasional, No rales Cardiovascular/Chest: Present: regular rate, rhythm, no JVD, no murmur Abdomen: Present: Normal bowel sounds, soft, nontender, nondistended Extremity: Present: normal inspection, no calf tenderness Assessment/Plan - Problems/Diagnosis (1) Atrial fibrillation Problem: Acute Qualifiers: Atrial fibrillation type: paroxysmal Qualified Code(s): I48.0 - Paroxysmal atrial fibrillation Narrative: with RVR. converted spontaneously. will continue with cardizem and anticioagulation. (2) Exacerbation of asthma Problem: Acute Qualifiers: Asthma severity: moderate Asthma persistence: persistent Qualified Code(s ): J45.41 - Moderate persistent asthma with (acute) exacerbation (3) Anxiety Problem: Acute (4) Allergy Problem: Acute (5) Hypertension Problem: Chronic Qualifiers: Hypertension type: essential hypertension Qualified Code(s): I10 - Essential (primary) hypertension (6) Obesity Problem: Chronic
[2017-02-25] MEDS: FUROSEMIDE 20 MG TABLET PO SCH (08:30)
[2017-02-25] MEDS: FELODIPINE 5 MG TAB.SR.24H PO SCH (08:30)
[2017-02-25] MEDS: LORATADINE 10 MG TABLET PO SCH (08:30)
[2017-02-25] MEDS: LISINOPRIL 20 MG TABLET PO SCH (08:31)
[2017-02-25] MEDS: MONTELUKAST SODIUM 10 MG TABLET PO SCH (08:31)
--- NOTE | 2017-02-25 11:47 | ECHO ---
This report is available in the EMR
[2017-02-25] MEDS: APIXABAN 2.5 MG TABLET PO SCH (20:23)
[2017-02-25] MEDS: SIMVASTATIN 40 MG TABLET PO SCH (20:23)
[2017-02-25] MEDS: LEVALBUTEROL HCL 0.63 MG/3 ML AMPUL IH PRN (20:29)
[2017-02-26] MEDS: METHYLPREDNISOLONE SOD SUCC 60 MG in WATER FOR INJ.,BACTERIOSTATIC 0 ML IV SCH ×3 (01:09→16:44)
[2017-02-26] MEDS: IPRATROPIUM BROMIDE 0.5 MG/2.5 ML VIAL.NEB IH SCH ×4 (01:58→18:18)
[2017-02-26] MEDS: LEVALBUTEROL HCL 0.63 MG/3 ML AMPUL IH SCH ×5 (02:00→18:16)
[2017-02-26] MEDS: BUDESONIDE 0.5 MG/2 ML VIAL.NEB IH SCH ×2 (06:03→18:19)
[2017-02-26] MEDS: LEVALBUTEROL HCL 0.63 MG/3 ML AMPUL IH PRN ×2 (06:04→10:47)
[2017-02-26] MEDS ORDERED: DILTIAZEM HCL 30 MG TABLET PO SCH (06:45)
[2017-02-26] MEDS: PANTOPRAZOLE SODIUM 40 MG TABLET.EC PO SCH (07:22)
[2017-02-26] MEDS: DILTIAZEM HCL 30 MG TABLET PO SCH ×3 (07:22→23:34)
[2017-02-26] MEDS: AZITHROMYCIN 500 MG in DEXTROSE 5 % IN WATER 250 ML IV SCH ×2 (07:29)
[2017-02-26] MEDS ORDERED: DILTIAZEM HCL 120 MG CAP.SR.24H PO SCH (09:00)
--- NOTE | 2017-02-26 09:13 | PN ---
Subjective - Date and Time Seen Date: 02/26/17 Time: 09:07 Subjective Narrative: Doing better. Did not need to use BiPap last night. O2 down to 2.5 L NC. Objective - Review of Systems Generalized/Overall Review: Denies: Chills, Fever Respiratory: Reports: Cough, Shortness of Breath. Denies: Wheezing Cardiac: Denies: Chest Pain, Edema, Palpitations Abdominal: Denies: Nausea, Vomiting Genitourinary Symptoms: Denies: Urgency, Frequency - Vitals Vitals: Last Vital Signs Temp 36.5 C 02/26/17 06:49 Pulse 103 H 02/26/17 07:22 Resp 20 02/26/17 06:49 BP 139/65 02/26/17 07:22 Pulse Ox 94 02/26/17 06:49 - Exam Constitutional: Present: Alert, Oriented x3, Cooperative ENT Exam: Present: hearing grossly normal Respiratory: Present: decreased breath sounds, wheezing - occasional, No rales Cardiovascular/Chest: Present: regular rate, rhythm, no JVD, no murmur Abdomen: Present: Normal bowel sounds, soft, nontender, nondistended Extremity: Present: no pedal edema, no calf tenderness Assessment/Plan - Problems/Diagnosis (1) Atrial fibrillation Problem: Resolved Qualifiers: Atrial fibrillation type: paroxysmal Qualified Code(s): I48.0 - Paroxysmal atrial fibrillation (2) Exacerbation of asthma Problem: Acute Qualifiers: Asthma severity: moderate Asthma persistence: persistent Qualified Code(s ): J45.41 - Moderate persistent asthma with (acute) exacerbation Narrative: significantly improved. (3) Anxiety Problem: Acute (4) Allergy Problem: Acute (5) Hypertension Problem: Chronic Qualifiers: Hypertension type: essential hypertension Qualified Code(s): I10 - Essential (primary) hypertension (6) Obesity Problem: Chronic
[2017-02-26] MEDS: FELODIPINE 5 MG TAB.SR.24H PO SCH (09:42)
[2017-02-26] MEDS: LISINOPRIL 20 MG TABLET PO SCH (09:42)
[2017-02-26] MEDS: MONTELUKAST SODIUM 10 MG TABLET PO SCH (09:42)
[2017-02-26] MEDS: FUROSEMIDE 20 MG TABLET PO SCH (09:42)
[2017-02-26] MEDS: LORATADINE 10 MG TABLET PO SCH (09:42)
[2017-02-26] MEDS: APIXABAN 2.5 MG TABLET PO SCH ×2 (09:42→21:09)
[2017-02-26] MEDS: SIMVASTATIN 40 MG TABLET PO SCH (21:09)
[2017-02-27] MEDS: LEVALBUTEROL HCL 0.63 MG/3 ML AMPUL IH SCH ×4 (00:02→18:22)
[2017-02-27] MEDS: METHYLPREDNISOLONE SOD SUCC 60 MG in WATER FOR INJ.,BACTERIOSTATIC 0 ML IV SCH ×3 (01:27→20:38)
[2017-02-27] MEDS: IPRATROPIUM BROMIDE 0.5 MG/2.5 ML VIAL.NEB IH SCH ×4 (05:59→18:24)
[2017-02-27] MEDS: BUDESONIDE 0.5 MG/2 ML VIAL.NEB IH SCH ×2 (06:00→18:25)
[2017-02-27] MEDS: PANTOPRAZOLE SODIUM 40 MG TABLET.EC PO SCH (08:21)
[2017-02-27] MEDS: AZITHROMYCIN 500 MG in DEXTROSE 5 % IN WATER 250 ML IV SCH ×2 (08:21)
[2017-02-27] MEDS: LISINOPRIL 20 MG TABLET PO SCH (08:22)
[2017-02-27] MEDS: DILTIAZEM HCL 120 MG CAP.SR.24H PO SCH (08:22)
[2017-02-27] MEDS: LORATADINE 10 MG TABLET PO SCH (08:22)
[2017-02-27] MEDS: MONTELUKAST SODIUM 10 MG TABLET PO SCH (08:22)
[2017-02-27] MEDS: APIXABAN 2.5 MG TABLET PO SCH ×2 (08:22→20:39)
[2017-02-27] MEDS: FELODIPINE 5 MG TAB.SR.24H PO SCH (08:22)
[2017-02-27] MEDS: FUROSEMIDE 20 MG TABLET PO SCH (08:22)
--- NOTE | 2017-02-27 08:46 | PN ---
Subjective - Date and Time Seen Date: 02/27/17 Time: 08:41 Subjective Narrative: Patient continues to do better. has not walked yet today to see if her O2 sat drops down. Objective - Review of Systems Generalized/Overall Review: Reports: Weakness. Denies: Chills, Fever Respiratory: Denies: Cough, Shortness of Breath, Wheezing Abdominal: Denies: Nausea, Vomiting Genitourinary Symptoms: Denies: Urgency, Frequency - Vitals Vitals: Last Vital Signs Temp 36.6 C 02/27/17 08:03 Pulse 83 02/27/17 08:22 Resp 19 02/27/17 08:03 BP 163/68 02/27/17 08:22 Pulse Ox 100 02/27/17 08:03 - Exam Constitutional: Present: Alert, Oriented x3, Cooperative ENT Exam: Present: hearing grossly normal Neck: Present: supple Respiratory: Present: decreased breath sounds, No rales, No wheezing Cardiovascular/Chest: Present: regular rate, rhythm, no JVD, no murmur Abdomen: Present: Normal bowel sounds, soft, nontender, nondistended Extremity: Present: no pedal edema, no calf tenderness Assessment/Plan - Problems/Diagnosis (1) Atrial fibrillation Problem: Resolved Qualifiers: Atrial fibrillation type: paroxysmal Qualified Code(s): I48.0 - Paroxysmal atrial fibrillation Narrative: continues to be in NSR. on eliquis anticioagulation. on cardizem. (2) Exacerbation of asthma Problem: Acute Qualifiers: Asthma severity: moderate Asthma persistence: persistent Qualified Code(s ): J45.41 - Moderate persistent asthma with (acute) exacerbation Narrative: will taper off solumedrol/breathing tx again. (3) Anxiety Problem: Acute (4) Allergy Problem: Acute (5) Hypertension Problem: Chronic Qualifiers: Hypertension type: essential hypertension Qualified Code(s): I10 - Essential (primary) hypertension (6) Obesity Problem: Chronic
[2017-02-27] MEDS ORDERED: MAGNESIUM HYDROXIDE 30 ML UDC PO PRN (18:37)
[2017-02-27] MEDS: SIMVASTATIN 40 MG TABLET PO SCH (20:39)
[2017-02-28] MEDS: IPRATROPIUM BROMIDE 0.5 MG/2.5 ML VIAL.NEB IH SCH ×3 (06:06→18:33)
[2017-02-28] MEDS: LEVALBUTEROL HCL 0.63 MG/3 ML AMPUL IH SCH ×3 (06:07→18:34)
[2017-02-28] MEDS: BUDESONIDE 0.5 MG/2 ML VIAL.NEB IH SCH ×2 (06:07→18:34)
[2017-02-28] MEDS: PANTOPRAZOLE SODIUM 40 MG TABLET.EC PO SCH (07:11)
[2017-02-28] MEDS: AZITHROMYCIN 500 MG in DEXTROSE 5 % IN WATER 250 ML IV SCH ×2 (07:21)
[2017-02-28] MEDS: METHYLPREDNISOLONE SOD SUCC 60 MG in WATER FOR INJ.,BACTERIOSTATIC 0 ML IV SCH (08:43)
[2017-02-28] MEDS: MONTELUKAST SODIUM 10 MG TABLET PO SCH (08:48)
[2017-02-28] MEDS: FELODIPINE 5 MG TAB.SR.24H PO SCH (08:48)
[2017-02-28] MEDS: LORATADINE 10 MG TABLET PO SCH (08:48)
[2017-02-28] MEDS: DOCUSATE SODIUM 100 MG CAPSULE PO SCH (08:48)
[2017-02-28] MEDS: FUROSEMIDE 20 MG TABLET PO SCH (08:48)
[2017-02-28] MEDS: DILTIAZEM HCL 120 MG CAP.SR.24H PO SCH (08:48)
[2017-02-28] MEDS: LISINOPRIL 20 MG TABLET PO SCH (08:49)
[2017-02-28] MEDS: APIXABAN 2.5 MG TABLET PO SCH ×2 (08:49→20:20)
[2017-02-28] MEDS ORDERED: DILTIAZEM HCL 180 MG CAP.SR.24H PO SCH (09:04)
--- NOTE | 2017-02-28 09:26 | PN ---
Subjective - Date and Time Seen Date: 02/28/17 Time: 09:23 Subjective Narrative: Patient continues to do better. off her O2 for more than an hour and saturating 95%. Objective - Review of Systems Generalized/Overall Review: Denies: Chills, Fever Respiratory: Reports: Cough, Shortness of Breath - with exertion, Wheezing - ocassional Cardiac: Denies: Chest Pain, Edema, Palpitations Abdominal: Denies: Nausea, Vomiting Genitourinary Symptoms: Denies: Urgency, Frequency - Vitals Vitals: Last Vital Signs Temp 36.4 C L 02/28/17 06:21 Pulse 96 02/28/17 08:49 Resp 20 02/28/17 06:21 BP 173/84 02/28/17 08:49 Pulse Ox 95 02/28/17 08:50 - Exam Constitutional: Present: Alert, Oriented x3 ENT Exam: Present: hearing grossly normal Neck: Present: supple Respiratory: Present: decreased breath sounds, wheezing - ocassional, No rales Assessment/Plan - Problems/Diagnosis (1) Atrial fibrillation Problem: Resolved Qualifiers: Atrial fibrillation type: paroxysmal Qualified Code(s): I48.0 - Paroxysmal atrial fibrillation (2) Exacerbation of asthma Problem: Acute Qualifiers: Asthma severity: moderate Asthma persistence: persistent Qualified Code(s ): J45.41 - Moderate persistent asthma with (acute) exacerbation Narrative: will restart her Dulera (3) Anxiety Problem: Acute (4) Allergy Problem: Acute (5) Hypertension Problem: Chronic Qualifiers: Hypertension type: essential hypertension Qualified Code(s): I10 - Essential (primary) hypertension Narrative: will increase Cardizem CD to 180 mg. (6) Obesity Problem: Chronic
[2017-02-28] MEDS ORDERED: NON-FORMULARY 1 DOSE DOSE PO ONE (10:08)
[2017-02-28] MEDS ORDERED: DILTIAZEM HCL 120 MG CAP.SR.24H PO ONE (10:25)
[2017-02-28] MEDS: predniSONE 20 MG TABLET PO SCH (17:08)
[2017-02-28] MEDS: SIMVASTATIN 40 MG TABLET PO SCH (20:20)
[2017-03-01] MEDS: IPRATROPIUM BROMIDE 0.5 MG/2.5 ML VIAL.NEB IH SCH (06:02)
[2017-03-01] MEDS: LEVALBUTEROL HCL 0.63 MG/3 ML AMPUL IH SCH (06:03)
[2017-03-01] MEDS: BUDESONIDE 0.5 MG/2 ML VIAL.NEB IH SCH (06:03)
[2017-03-01 07:09] VITALS: BP 149/66
[2017-03-01] MEDS: PANTOPRAZOLE SODIUM 40 MG TABLET.EC PO SCH (07:19)
--- NOTE | 2017-03-01 08:17 | DS ---
(1) Atrial fibrillation Problem: Resolved Qualifiers: Atrial fibrillation type: paroxysmal Qualified Code(s): I48.0 - Paroxysmal atrial fibrillation (2) Exacerbation of asthma Problem: Resolved Qualifiers: Asthma severity: moderate Asthma persistence: persistent Qualified Code(s ): J45.41 - Moderate persistent asthma with (acute) exacerbation (3) Anxiety Problem: Chronic (4) Allergy Problem: Chronic (5) Hypertension Problem: Chronic Qualifiers: Hypertension type: essential hypertension Qualified Code(s): I10 - Essential (primary) hypertension (6) Obesity Problem: Chronic Description of Stay: Mitali House, is a 76 year old pt of Dr. Santana who presented by EMS to the ER on 02/22/2017 with SOB. She was just released from the hospital less than 24 hours [employer] for asthma exacerbation. She states she was a little better when she left here but worsened throughout the day. Upon presentation to the ER she was found to be in severe respiratory distress with hypoxia, saturations in the low 80's on RA, HR in the 130's with respirations in the mid 30's. ABG was completed which revealed Pco2 of 67.6, pO2 82.4. HCO3 24.7, CO2 26.8, pH 7.18, and o2 93. She was admitted to in patient for respiratory failure secondary to asthma exacerbation as evidence by hypercapnic respiratory acidosis. She was started on albuterol nebs and then switched to levarbutrol nebs because of tachycardia. She was also put on IV steroids and IV antibiotics. She then developed AFibrilaation with RVR. She given cardizem IV boluses and then transferred to ICU for a drip. Ipatropium nebs were added and IV protonic started. She was also started on anticiopagulation. Her Echo showed normal EF, did not show LAE. She converted spontaneously. Her plendil was stopped and she is on Cardizem now. She was able to be weaned off her O2 and is stable now to be discharged. Procedures Performed: none Discharge Disposition: Home self care Disposition: Home self-care Condition: Fair Discharge Activity: Activity as tolerated Discharge Diet: Low salt Referrals: Ladonna Santana MD [Primary Care Provider] - Additional Patient Instructions (free text): TCM appointment unless residential discharge. Thank you! Francesca [phone]. Follow up with PCP in 2 weeks. Please sen copies of discharge summary to Dr. Szymanski and Dr. Salinas. Prescriptions (Any new or edited meds): Acetaminophen [Tylenol] 650 mg PO Q6H PRN #30 tablet PRN Reason: Mild Pain (Pain Scale 1-3) Azithromycin 250 mg PO DAILY #7 tablet Ipratropium [place] [Atrovent] 0.5 mg IH TIDRT #1 vial.neb predniSONE [Prednisone] 20 mg PO DAILY #7 tablet Simvastatin [Zocor] 20 mg PO HS #30 tablet Complete Home Medications List: Complete Home Medication List: Albuterol Sulfate [Proair Hfa] 8.5 gm IH QID PRN 03/14/12 Lisinopril 20 mg PO DAILY 03/14/12 guaiFENesin [Robitussin] 200 mg PO Q4H PRN #1 btl 03/31/16 Acetaminophen [Tylenol] 500 mg PO TID PRN 02/20/17 Furosemide [Lasix] 20 mg PO DAILY 02/20/17 Loratadine 10 mg PO DAILY 02/20/17 Mometasone/Formoterol [Dulera 200 Mcg/5 Mcg Inhaler] 13 gm IH BID 02/20/17 Montelukast Sodium [Singulair] 10 mg PO DAILY 02/20/17 Naproxen Sodium [Aleve] 220 mg PO BID 02/20/17 Acetaminophen [Tylenol] 650 mg PO Q6H PRN #30 tablet 03/01/17 Apixaban [Eliquis] 2.5 mg PO BID tablet 03/01/17 Azithromycin 250 mg PO DAILY #7 tablet 03/01/17 Diltiazem HCl [Cardizem Cd] 180 mg PO Q24H cap.sr.24h 03/01/17 Docusate Sodium [Colace] 100 mg PO DAILY capsule 03/01/17 Ipratropium [place] [Atrovent] 0.5 mg IH TIDRT #1 vial.neb 03/01/17 Pantoprazole Sodium [Protonix] 40 mg PO DAILY@0700 tablet. 03/01/17 Simvastatin [Zocor] 20 mg PO HS #30 tablet 03/01/17 predniSONE [Prednisone] 20 mg PO DAILY #7 tablet 03/01/17
[2017-03-01] MEDS: AZITHROMYCIN 500 MG in DEXTROSE 5 % IN WATER 250 ML IV SCH ×2 (08:21)
[2017-03-01] MEDS: APIXABAN 2.5 MG TABLET PO SCH (08:22)
[2017-03-01] MEDS: LORATADINE 10 MG TABLET PO SCH (08:22)
[2017-03-01] MEDS: DOCUSATE SODIUM 100 MG CAPSULE PO SCH (08:22)
[2017-03-01] MEDS: FUROSEMIDE 20 MG TABLET PO SCH (08:22)
[2017-03-01] MEDS: LISINOPRIL 20 MG TABLET PO SCH (08:23)
[2017-03-01] MEDS: MONTELUKAST SODIUM 10 MG TABLET PO SCH (08:23)
[2017-03-01] MEDS: predniSONE 20 MG TABLET PO SCH (08:40)
[2017-03-01] MEDS ORDERED: DILTIAZEM HCL 180 MG CAP.SR.24H PO SCH (09:00)
== END 2017-03-01 10:14 | disposition home or self-care (01) | DRG 189 ==
LOC: ER 03:58 → MS 05:47 → OBSVTOIN 02-23 08:28 → SCU 02-24 10:52 → MS 02-25 12:45
PROVIDERS: ADMIT Nurse Practitioner Gerontology; ATTEND Internal Medicine
PROC: 4A033R1 Measurement of Arterial Saturation, Peripheral, Percutaneous Approach (ICD-10-PCS; principal; 2017-02-22)
PROC: B246ZZZ Ultrasonography of Right and Left Heart (ICD-10-PCS; 2017-02-24)
DX: J96.02 Acute respiratory failure with hypercapnia (principal); J45.41 Moderate persistent asthma with (acute) exacerbation; E87.2 Acidosis; I48.0 Paroxysmal atrial fibrillation; I10 Essential (primary) hypertension; F41.9 Anxiety disorder, unspecified
CPT/HCPCS: 36415; 36600; 71010; 71275; 80053; 81001; 82803; 83605; 83880; 84484; 85025; 87040; 87400; 93005; 93306; 94640; 94660; 94760; 96374; 99285; G0378